=== PATIENT | female | born 1955 | race Two or more races ===

== ENCOUNTER → 2016-11-17 | Outpatient (CLI) | payer MEDICAID ==
[2016-11-17 19:34] LABS: AMPHETAMINES/METAMPHETAMINES NEGATIVE ng/mL (<1000)
== END ==
LOC: LAB 18:27
PROVIDERS: Emergency Medicine
DX: M54.9 Dorsalgia, unspecified (principal)

== ENCOUNTER → 2017-01-13 | Outpatient (CLI) | payer MEDICAID ==
[2017-01-13 19:40] LABS: AMPHETAMINES/METAMPHETAMINES NEGATIVE ng/mL (<1000)
== END ==
LOC: LAB 19:01
PROVIDERS: Emergency Medicine
DX: Z79.899 Other long term (current) drug therapy (principal)

== ENCOUNTER → 2017-02-10 | Outpatient (CLI) | payer MEDICAID ==
[2017-02-10 13:24] LABS: AMPHETAMINES/METAMPHETAMINES NEGATIVE ng/mL (<1000)
== END ==
LOC: LAB 12:30
PROVIDERS: Emergency Medicine
DX: Z79.899 Other long term (current) drug therapy (principal)

== ENCOUNTER → 2017-03-10 | Outpatient (CLI) | payer MEDICAID ==
[2017-03-10 18:42] LABS: AMPHETAMINES/METAMPHETAMINES NEGATIVE ng/mL (<1000)
== END ==
LOC: LAB 16:54
PROVIDERS: Emergency Medicine
DX: Z79.899 Other long term (current) drug therapy (principal)